=== PATIENT | male | born 1955 | race Caucasian/White ===

== ENCOUNTER 2019-09-04 21:47 | Emergency (ER) | payer OTHER, SELFPAY ==
[2019-09-04 21:50] VITALS: BP 124/78; PULSE 79; RESP 18; TEMP 36.4; O2SAT 98
--- NOTE | 2019-09-04 22:01 | PC.NURSE ---
Pt states he was mowing the lawn using a push mower close to a retaining wall when his leg caught the side of the mower and received a small laceration to his lower right leg. Pt lost balance, scraped his left finger pads trying to catch himself and fell off the retaining wall. Approx 4-5ft. He hit the back of his head on the ground and has a circular abrasion and swelling. He also notes soreness to his left chest from the fall. No neuro deficits noted.
[2019-09-04 23:33] VITALS: BP 119/74; PULSE 68; RESP 18; O2SAT 98
--- NOTE | 2019-09-05 00:54 | ED.WOUNDLAC ---
HPI - Wound/Laceration General Chief Complaint: Wound/Laceration Stated Complaint: puncture wound Time Seen by Provider: 09/05/19 00:24 Source: patient Mode of arrival: ambulatory Limitations: no limitations History of Present Illness HPI narrative: This patient is a 63 year old male who presents for evaluation of right lower extremity wound. PAtient states he fell backwards and the lawnmower punctured his right leg. He reports only minimal pain. He has been able to ambulate without difficulty. He also reports burn to left fingers . He reports hitting his head but he has no swelling, no LOC, no headache, no dizziness, no nausea or vomiting. He also denies taking blood thinners. He is unsure of his last tetanus shot. Onset (ago): hour(s) (4) Related Data Allergies Allergy/AdvReac Type Severity Reaction Status Date / Time No Known Allergies Allergy Unverified 01/14/16 07:12 Review of Systems Review of Systems: All systems reviewed & are unremarkable except as noted in HPI and below PMFSH Past Medical History Medical History (Updated 09/05/19 @ 01:56 by Brigette Ledezma MD) Hypertension Family History Family History (Updated 09/22/16 @ 09:25 by DOCTOR UNKNOWN) Other Family history of coronary artery disease Hypertension Social History Social History Smoking status: Never smoker Alcohol intake: current Gender identity (if verbalized by the patient): Male Exam Const: General: alert Orientation/consciousness: patient oriented x3 HENMT: Head: normocephalic and other (abrasion to posterior scalp , no swelling, no hematoma) General nose exam: Normal external nose present Face and sinus: sinuses nontender and face symmetric Eyes: Pupils: Equal, round and reactive pupils present EOM: EOMs intact bilaterally Neck: Neck: normal visual inspection and no lymphadenopathy Chest: Chest palpation & inspection: normal inspection of the chest and no tenderness Resp: Effort & Inspection: normal respiratory effort and no retractions Auscultation: clear to auscultation bilaterally Cardio: Rate: regular rate Rhythm: regular rhythm Heart sounds: no murmurs GI: GI Palp: Yes Soft to palpation, No Tenderness to palpation present (GI) and No Guarding due to palpation present (GI) Neuro: General: patient oriented x3 and moves all extremities Extrem: Other: FROm to all extremities . There is 1 cm puncture wound to right mid lower leg, no swelling, strong pedal pulses Psych: Mental Status: mental status grossly normal Affect: normal affect Course Reevaluation(s) Reevaluation #1: Patient has no complaints. He hit his head but no LOC and no symptoms to suggest need for CT brain at this time. Date: 09/05/19 Time: 01:56 Vital Signs Vital signs: Vital Signs Temperature 97.5 F L 09/04/19 21:50 Pulse Rate 79 09/04/19 21:50 Respiratory Rate 18 09/04/19 21:50 Blood Pressure 124/78 09/04/19 21:50 Pulse Oximetry 98 09/04/19 21:50 Temperature 97.5 F L 09/04/19 21:50 Pulse Rate 70 09/05/19 02:12 Respiratory Rate 18 09/05/19 02:12 Blood Pressure 128/70 09/05/19 02:12 Pulse Oximetry 98 09/05/19 02:12 Procedures Laceration Laceration 1: Date: 09/05/19 Time: 01:37 Site: lower extremity Size (cm): 1 Description: irregular Local Anesthetic: lidocaine 1% and with epi Amount of anesthesia used (mL): 5 Pre-repair: irrigated (100 ml saline) ====== Skin Level ====== Size (cm): 4-0 (ethilone) Number of sutures: 2 Technique: horizontal mattress ====== Subcutaneous Layer ====== ====== Muscle Layer ====== ====== Tendon Layer ====== Discharge Plan Discharge Clinical Impression: Laceration of lower leg, right, Abrasion of scalp Patient Disposition: Home, Self-Care Condition: Stable Instructions: Antibiotic Form, Care For Your Stitches (ED), Puncture Wound (ED)
[2019-09-05] MEDS: TETANUS,DIPHTHERIA,AC PERTUSSIS ADULT (0.5 ML) BOOSTRIX IM (01:06)
[2019-09-05 02:12] VITALS: BP 128/70; PULSE 70; RESP 18; O2SAT 98
== END 2019-09-05 02:14 | disposition home or self-care (01) ==
PROVIDERS: Emergency Provider General Practice; PCP Family Medicine
DX: S81.811A Laceration without foreign body, right lower leg, initial encounter (principal); S00.01XA Abrasion of scalp, initial encounter; W18.30XA Fall on same level, unspecified, initial encounter; Y29.XXXA Contact with blunt object, undetermined intent, initial encounter; Z23 Encounter for immunization
CPT/HCPCS: 12001; 90471; 90715; 99282

== ENCOUNTER 2022-12-18 07:52 | Outpatient (CLI) | payer MEDICARE, SELFPAY ==
[2022-12-18 11:53] LABS: Basophils Absolute Auto 0.1 K/mm3 (0.0-0.1); Eosinophils Absolute Auto 0.2 K/mm3 (0-0.3); Eosinophils Percent Auto 3.9 % (0-4.4); Hemoglobin 13.8 g/dL (14.0-18.0); Immature Granulocyte Absolute 0.01 K/mm3 (0.00-0.031); Immature Granulocyte Percent A 0.2 % (0-0.5); Lymphocytes Absolute Auto 0.97 K/mm3 (0.9-3.2); Lymphocytes Percent Auto 16.5 % (18.3-44.2); Mean Corpuscular HGB Conc 32.1 g/dl (32-36); Mean Corpuscular Hemoglobin 30.6 pg (26-34); Mean Corpuscular Volume 95.3 fl (80-100); Mean Platelet Volume 10.5 fl (7.4-10.4); Monocytes Absolute Auto 0.4 K/mm3 (0.1-0.6); Monocytes Percent Auto 6.6 % (2.6-8.5); Neutrophils Absolute Auto 4.2 K/mm3 (1.3-6.7); Neutrophils Percent Auto 71.8 % (45.5-73.1); Platelet Count Result 211 k/mm3 (150-375); Red Blood Count 4.51 M/mm3 (4.6-6.20); Red Cell Distribution Width 12.5 % (11.5-14.5); White Blood Count 5.9 K/mm3 (4.5-10.0)
[2022-12-18 11:56] LABS: Alanine Aminotransferase 39 U/L (6-50); Albumin Level 4.3 g/dL (3.5-5.1); Alkaline Phosphatase 74 U/L (38-126); Anion Gap 5 mmol/L (8-16); Aspartate Amino Transferase 40 U/L (17-59); Bilirubin,Total 0.8 mg/dL (0.2-1.3); Blood Urea Nitrogen 13 mg/dL (9-20); Calcium 9.7 mg/dL (8.4-10.2); Carbon Dioxide 31 mmol/L (22-30); Chloride 102 mmol/L (98-107); Cholesterol 211 mg/dL (0-200); Estimated Glomerular Filt Rate > 60; Glucose 91 mg/dL (65-110); HDL Direct 39 mg/dL; Potassium 4.2 mmol/L (3.4-5.0); Sodium 138 mmol/L (137-145); Triglycerides 102 mg/dL (<150)
[2022-12-18 12:07] LABS: LDL Cholesterol Direct 132 mg/dL
[2022-12-18 13:29] LABS: Hemoglobin A1C 5.4 % (<5.7)
[2022-12-18 18:02] LABS: Vitamin D 25 Hydroxy 44.4 ng/mL
[2022-12-22 14:48] LABS: Testosterone Free 46.6 pg/mL (35.0-155.0); Testosterone Total 490 ng/dL (250-1100)
== END 2022-12-18 07:53 | disposition home or self-care (01) ==
PROVIDERS: PCP Family Medicine; Visit Provider Nurse Practitioner Family
DX: E55.9 Vitamin D deficiency, unspecified (principal); I10 Essential (primary) hypertension; R73.03 Prediabetes; Z00.00 Encounter for general adult medical examination without abnormal findings; Z13.220 Encounter for screening for lipoid disorders; Z13.29 Encounter for screening for other suspected endocrine disorder
CPT/HCPCS: 36415; 80053; 80061; 82306; 83036; 84402; 84403; 84443; 85025

== ENCOUNTER 2023-10-15 08:11 | Outpatient (CLI) | payer MEDICARE, SELFPAY ==
[2023-10-15 13:56] LABS: Basophils Absolute Auto 0.1 K/mm3 (0.0-0.1); Basophils Percent Auto 0.9 % (0.2-1.2); Eosinophils Absolute Auto 0.1 K/mm3 (0-0.3); Eosinophils Percent Auto 2.1 % (0-4.4); Hematocrit 42.9 % (42.0-52.0); Hemoglobin 13.7 g/dL (14.0-18.0); Immature Granulocyte Absolute 0.01 K/mm3 (0.00-0.031); Immature Granulocyte Percent A 0.2 % (0-0.5); Lymphocytes Absolute Auto 1.81 K/mm3 (0.9-3.2); Lymphocytes Percent Auto 28.6 % (18.3-44.2); Mean Corpuscular HGB Conc 31.9 g/dl (32-36); Mean Corpuscular Hemoglobin 30.6 pg (26-34); Mean Corpuscular Volume 95.8 fl (80-100); Mean Platelet Volume 10.4 fl (7.4-10.4); Monocytes Absolute Auto 0.5 K/mm3 (0.1-0.6); Monocytes Percent Auto 7.3 % (2.6-8.5); Neutrophils Absolute Auto 3.9 K/mm3 (1.3-6.7); Neutrophils Percent Auto 60.9 % (45.5-73.1); Platelet Count Result 226 k/mm3 (150-375); Red Blood Count 4.48 M/mm3 (4.6-6.20); Red Cell Distribution Width 12.8 % (11.5-14.5); White Blood Count 6.3 K/mm3 (4.5-10.0)
[2023-10-15 14:16] LABS: Hemoglobin A1C 5.7 % (<5.7)
[2023-10-15 15:21] LABS: Vitamin D 25 Hydroxy 38.6 ng/mL
[2023-10-15 15:34] LABS: Alanine Aminotransferase 34 U/L (6-50); Albumin Level 4.4 g/dL (3.5-5.1); Alkaline Phosphatase 70 U/L (38-126); Anion Gap 14 mmol/L (4-12); Aspartate Amino Transferase 52 U/L (17-59); Bilirubin,Total 0.6 mg/dL (0.2-1.3); Blood Urea Nitrogen 10 mg/dL (9-20); Calcium 9.4 mg/dL (8.4-10.2); Carbon Dioxide 24 mmol/L (22-30); Chloride 103 mmol/L (98-107); Cholesterol 199 mg/dL (0-200); Estimated Glomerular Filt Rate > 60; Glucose 78 mg/dL (65-110); HDL Direct 42 mg/dL; Potassium 3.8 mmol/L (3.4-5.0); Sodium 141 mmol/L (137-145); Triglycerides 113 mg/dL (<150)
[2023-10-15 15:45] LABS: LDL Cholesterol Direct 123 mg/dL
[2023-10-15 16:05] LABS: Prostate Specific Antigen 0.5 ng/mL (< OR = 4.0)
[2023-10-20 21:24] LABS: Testosterone Total 334 ng/dL (250-1100)
== END 2023-10-15 08:12 | disposition home or self-care (01) ==
LOC: ANHGOSHLAB 08:13
PROVIDERS: PCP Family Medicine; Visit Provider Nurse Practitioner Family
DX: E78.5 Hyperlipidemia, unspecified (principal); I10 Essential (primary) hypertension; Z00.00 Encounter for general adult medical examination without abnormal findings; Z12.5 Encounter for screening for malignant neoplasm of prostate; R79.89 Other specified abnormal findings of blood chemistry; R73.03 Prediabetes; Z13.220 Encounter for screening for lipoid disorders; Z13.29 Encounter for screening for other suspected endocrine disorder; E55.9 Vitamin D deficiency, unspecified
CPT/HCPCS: 36415; 80053; 80061; 82306; 83036; 84153; 84403; 84443; 85025; G0103

== ENCOUNTER 2024-02-09 08:57 | Outpatient (CLI) | payer MEDICARE, SELFPAY ==
--- NOTE | ~2024-02-09 | XR_ITS ---
Left Knee Technique: AP, lateral, and sunrise views were obtained. Clinical History: pain Findings: No fracture or dislocation is seen. Osseous alignment is anatomic. Joint spaces are preserv ed with minimal degenerative spurring of the patella. Soft tissues are unremarkable. No joint effusio n is seen. Impression: Minimal patellar spurring. Reviewed, dictated and finalized at location . T FORMULATOR Impression: Minimal patellar spurring.
--- NOTE | ~2024-02-09 | XR_ITS ---
Right Knee Technique: AP, lateral, and sunrise views were obtained. Clinical History: Pain Findings: No fracture or dislocation is seen. Osseous alignment is anatomic. There is moderate latera l joint line osteophyte formation. There is moderate patellar spurring. There is mild medial compartm ent spurring.. Small joint effusion is seen. Impression: Tricompartmental degenerative spurring, worst at the lateral and patellofemoral compartment, as above . Small joint effusion. Reviewed, dictated and finalized at location . [employer] Impression: Tricompartmental degenerative spurring, worst at the lateral and patellofemoral compartment, as above. Small joint effusion.
== END 2024-02-09 08:58 | disposition home or self-care (01) ==
LOC: GOSHIMG 08:58
PROVIDERS: PCP Orthopaedic Surgery; Visit Provider Nurse Practitioner Family
DX: M25.561 Pain in right knee (principal); M25.562 Pain in left knee
CPT/HCPCS: 73562